=== PATIENT | male | born 1960 ===

== ENCOUNTER 2017-06-01 15:59 | Emergency (ER) | payer MEDICAID ==
[2017-06-01 16:08] VITALS: BMI 29.6
[2017-06-01 16:11] VITALS: PULSE 107; RESP 18; TEMP 97.9; O2SAT 98
[2017-06-01 16:13] VITALS: BP 162/95
--- NOTE | 2017-06-01 16:25 | ED PDOC ---
Arrival/HPI - General Chief Complaint: Eye Problem Time Seen by Provider: 06/01/17 16:22 Historian: Patient - History of Present Illness Narrative History of Present Illness (Text): 06/01/17 16:22 57yo male with PMhx of sleep apnea and left eye cataract present with two days history of left upper eyelid swelling x days. Notes purulent discharge from the eye this morning. Reports mild pain to the swollen upper lid. Denies visual acuity change, any other complaint. Past Medical History - Provider Review Nursing Documentation Reviewed: Yes - Infectious Disease Hx of Infectious Diseases: None - Pulmonary Hx Sleep Apnea: Yes - Psychiatric Hx Anxiety: Yes Hx Substance Use: No - Anesthesia Hx Anesthesia: No Family/Social History - Physician Review Nursing Documentation Reviewed: Yes Family/Social History: Unknown Family HX Smoking Status: Never Smoked Hx Alcohol Use: No Hx Substance Use: No Allergies/Home Meds Allergies/Adverse Reactions: Allergies No Known Allergies Allergy (Verified 06/01/17 16:08) Review of Systems - Physician Review All systems were reviewed & negative as marked: Yes - Review of Systems Constitutional: Normal Eyes: Other (Left eyelid swelling) ENT: Normal Respiratory: Normal Cardiovascular: Normal Gastrointestinal: Normal Genitourinary Male: Normal Musculoskeletal: Normal Skin: Normal Neurological: Normal Endocrine: Normal Hemo/Lymphatic: Normal Psychiatric: Normal Physical Exam Vital Signs Reviewed: Yes Vital Signs Temp Pulse Resp BP Pulse Ox 06/01/17 16:12 162/95 H 06/01/17 16:11 97.9 F 107 H 18 184/78 H 98 Temperature: Afebrile Blood Pressure: Normal Pulse: Regular Respiratory Rate: Normal Appearance: Positive for: Well-Appearing, Non-Toxic, Comfortable Pain Distress: None Mental Status: Positive for: Alert and Oriented X 3 - Systems Exam Head: Present: Atraumatic, Normocephalic Pupils: Present: PERRL Extroacular Muscles: Present: EOMI, Other (Left upper eyelid swelling with mild erythema.) Conjunctiva: Present: Normal, Icteric (Mild left conjunctiva redness) Mouth: Present: Moist Mucous Membranes Neck: Present: Normal Range of Motion Respiratory/Chest: Present: Clear to Auscultation, Good Air Exchange. No: Respiratory Distress, Accessory Muscle Use Cardiovascular: Present: Regular Rate and Rhythm, Normal S1, S2. No: Murmurs Abdomen: Present: Normal Bowel Sounds. No: Tenderness, Distention, Peritoneal Signs Back: Present: Normal Inspection Upper Extremity: Present: Normal Inspection. No: Cyanosis, Edema Lower Extremity: Present: Normal Inspection. No: Edema Neurological: Present: GCS=15, CN II-XII Intact, Speech Normal Skin: Present: Warm, Dry, Normal Color. No: Rashes Psychiatric: Present: Alert, Oriented x 3, Normal Insight, Normal Concentration Medical Decision Making ED Course and Treatment: 06/01/17 23:49 PT in ED with stated history. 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 Notes history of cataract Acuity test Left 20/400 right 20/30 Both 4o Pt hyave a left upper lid stye. DC home with tobra opth droop. Advised to apply warm compress to swelling. Referred to the site reliability engineer . TRT ED for any new or worsening symptoms. Disposition/Present on Arrival - Present on Arrival Any Indicators Present on Arrival: No History of DVT/PE: No History of Uncontrolled Diabetes: No Urinary Catheter: No History of Decub. Ulcer: No History Surgical Site Infection Following: None - Disposition Have Diagnosis and Disposition been Completed?: Yes Diagnosis: Hordeolum external Disposition: HOME/ ROUTINE Disposition Time: 16:30 Patient Plan: Discharge Condition: STABLE Discharge Instructions (ExitCare): Jamie (ED) Additional Instructions: Follow up with your doctor/Core Analysis Operator Return to ED for any new or worsening symptoms Prescriptions: Tobramycin 0.3% [Tobrex 0.3% Ophth Soln] 2 drop OP Q3 #1 bottle Referrals: Regis Kan MD [Staff Provider] - Follow up with primary Forms: [employer]anta (Sen[place]alese)
== END 2017-06-01 17:20 | disposition home or self-care (01) ==
LOC: ED 15:59
DX: H00.014 Hordeolum externum left upper eyelid (principal); G47.30 Sleep apnea, unspecified